=== PATIENT | male | born 1975 | race Caucasian/White ===

== ENCOUNTER 2016-05-10 15:20 | Emergency (ER) | payer MEDICAID, OTHER ==
[2016-05-10] MEDS ORDERED: Tetan/Diph/Pertus SYR(Tdap)* 0.5 ML SYR(BOOSTRIX) use SYR IM ONE (15:39)
--- NOTE | 2016-05-10 15:45 | ED ---
Laceration/Wound HPI - HPI Summary HPI Summary: Patient was moving a porcelain toilet when it fell and he cut his right wrist on one of the broken pieces. He applied pressure and came for evaluation. He is not sure if his tetanus is up to date. He has not taken any medication for pain , nor does he want any. No N/T and has full function in wrist and digits. - History of Current Complaint Stated Complaint: HAND LAC AND WRSIT LAC Time Seen by Provider: 05/10/16 15:30 Hx Obtained From: Patient, Family/Barrel Cleaner Mechanism of Injury: Sharp/Blunt Trauma Onset/Duration: Sudden Onset Aggravating: Movement Alleviating: Compression Timing: Constant Onset Severity: Moderate Current Severity: Mild Pain Intensity: 2 Associated Signs & Symptoms: Pain Related Hx: Dominant Hand (Left) - Allergy/Home Medications Allergies/Adverse Reactions: Allergies Allergy/AdvReac Type Severity Reaction Status Date / Time Dust Mite Extract Allergy Itching Verified 05/10/16 15:24 Molds & Smuts Allergy Itching Verified 05/10/16 15:24 PMH/Surg Hx/FS Hx/Imm Hx Endocrine/Hematology History: Denies: Hx Diabetes, Hx Thyroid Disease Cardiovascular History: Denies: Hx Hypertension Respiratory History: Reports: Hx Asthma Denies: Hx Chronic Obstructive Pulmonary Disease (COPD) GI History: Denies: Hx Ulcer Infectious Disease History: No Infectious Disease History: Denies: Hx Hepatitis, Hx Human Immunodeficiency Virus (HIV), Traveled Outside the [place] in Last 30 Days - Family History Known Family History: Positive: None - Social History Occupation: Employed Full-time Lives: With Family Alcohol Use: Rare Substance Use Type: Reports: None Smoking Status (MU): Light Every Day Tobacco Smoker Cessation Counseling: Patient Advised to Stop Review of Systems Negative: Decreased ROM, Edema Positive: Other - V-shaped 2 cm laceration to volar aspect of right wrist Negative: Weakness, Paresthesia, Numbness All Other Systems Reviewed And Are Negative: Yes Physical Exam Triage Information Reviewed: Yes Vital Signs On Initial Exam: Initial Vitals Temp Pulse Resp BP Pulse Ox 98.1 F 79 18 140/76 99 05/10/16 15:22 05/10/16 15:22 05/10/16 15:22 05/10/16 15:22 05/10/16 15:22 Vital Signs Reviewed: Yes Appearance: Positive: Well-Appearing, Pain Distress, Thin Skin: Positive: Warm, Skin Color Reflects Adequate Perfusion, Dry, Tender - V- shaped 2 cm laceration to volar aspect of right wrist, Soft Head/Face: Positive: Normal Head/Face Inspection Eyes: Positive: EOMI, JAYDON, Conjunctiva Clear ENT: Positive: Hearing grossly normal Respiratory/Lung Sounds: Positive: Breath Sounds Present Cardiovascular: Positive: RRR Musculoskeletal: Positive: Strength/ROM Intact. Negative: Edema Left, Edema Right Neurological: Positive: Sensory/Motor Intact, Alert, Oriented to Person Place, Time, NV Bundle Intact Distally Psychiatric: Positive: Affect/Mood Appropriate AVPU Assessment: Alert Procedures - Laceration/Wound Repair 1 Location: upper extremity - right volar aspect of wrist Description: Irregular Anesthesia: Local, 2.0%, Lido Length, Depth and Shape: V-shaped 2 cm long, 4mm wide, 3 mm deep Betadine Prep?: No Irrigated w/ Saline (ccs): 200 Laceration/Wound Explored: clean Closure: Single Layer Debridement: minimal Suture Type: Nylon - 4.0 Number of Sutures: 7 Layer Closure?: No Sterile Dressing Applied?: Yes Diagnostics - Vital Signs Vital Signs Temp Pulse Resp BP Pulse Ox 05/10/16 15:22 98.1 F 79 18 140/76 99 - Laboratory Lab Statement: Any lab studies that have been ordered have been reviewed, and results considered in the medical decision making process. - Radiology No standard instances Xray Interpretation: No Acute Changes Radiology Interpretation Completed By: Radiologist Laceration Repair Course/Dx - Differential Dx Differental Diagnoses: Abrasion, Avulsion, Cellulitis, Dehiscence, Hematoma, Laceration - Clinical Impression Provider Diagnoses: Skin avulsion, Laceration, Tetanus toxoid inoculation Discharge - Discharge Plan Condition: Stable Disposition: HOME Patient Education Materials: Laceration (ED), Tetanus (ED) Referrals: No Primary Care Phys,NOPCP [Primary Care Provider] - [facility] [Outside] Additional Instructions: Keep your dressing clean, dry and in place for the next 48 hours. You may then remove and shower. Pat dry and cover with a clean, dry band-aid if you are going to be in a "dirty" environment, otherwise it can remain open to air. Do not soak the wound in any body of water until the sutures are removed. Elevate the hand above your heart and use Ibuprofen 600mg three times daily with meals for the next 5-7 days to reduce pain and swelling. Follow-up with your primary care provider or return to the emergency department in 10 days for suture removal. Return to the emergency department sooner if your symptoms worsen. You can call the number listed to establish care with a primary care provider.
--- NOTE | 2016-05-10 16:01 | RAD ---
Indication: Injury with shattered porcelain. Assess for foreign body. Comparison: None. Technique: AP and lateral views RIGHT wrist. REPORT AND IMPRESSION: Bandage over the volar aspect decreases sensitivity of exam. No conspicuous foreign body or subcutaneous emphysema evident. Normal articular alignment. Negative for fracture.
[2016-05-10 16:55] VITALS: BP 117/58
== END 2016-05-10 16:44 | disposition home or self-care (01) ==
LOC: ED 15:20
DX: S61.511A Laceration without foreign body of right wrist, initial encounter (principal); W19.XXXA Unspecified fall, initial encounter; Y93.9 Activity, unspecified; Y92.9 Unspecified place or not applicable; Y99.9 Unspecified external cause status; F17.210 Nicotine dependence, cigarettes, uncomplicated
CPT/HCPCS: 12001; 90471; 90715; 99282